=== PATIENT | female | born 1945 | race Asian ===

== ENCOUNTER 2023-06-09 18:55 | Emergency (ER) | payer MEDICARE ==
[~2023-06-09 18:55] MED LIST: Iopamidol 300 61% 100 ML VIAL FS ONE
[2023-06-09] MEDS ORDERED: Ampicillin/Sulbactam 3 GM in Sodium Chloride 0.9% 100 ML IVPB SCH (21:30)
[2023-06-09 21:41] LABS: Bilirubin Neg (Negative); Blood, Urine 10 (Negative); Clarity Clear (Clear); Glucose, Urine (Dipstick) Normal (Negative); Ketone, Urine Negative (Negative); Leukocyte 100 (Negative); Nitrite Negative (Negative); Protein, Urine (Dipstick) 30 mg/dl (Neg-Trace); Specific Gravity, Urine 1.015 (1.005-1.030); Urobilinogen Normal mg/dL (Less than 2)
[2023-06-09] MEDS ORDERED: Fluorescein Opthalmic Strip ONE (21:57)
[2023-06-09] MEDS ORDERED: Proparacaine 0.5% Opth 15 ML BOT ONE (21:58)
[2023-06-09 22:01] LABS: Bacteria/HPF 4+ HPF (None Seen); CAUTI Indications for Culture < 2yrs of age; RBC/HPF 0-3 HPF (0-3); Squamous Epithelial 0-3 HPF (0-3)
[2023-06-09 22:02] LABS: Urine Culture Reflex Yes Yes
[2023-06-09 22:14] LABS: ALT (SGPT) 10 U/L (8-55); AST (SGOT) 25 U/L (5-34); Albumin 4.1 g/dL (3.4-4.8); Alkaline Phosphatase 77 U/L (40-110); Anion Gap 14 mmol/L (10-20); BUN (Urea Nitrogen) 16 mg/dL (9.8-20.1); Bilirubin, Total 0.4 mg/dL (0.2-1.2); Calc. Creatinine Clearance 0 mL/min (70-130); Calcium 9.4 mg/dL (7.8-10.44); Carbon Dioxide 25 mmol/L (23-31); Chloride 103 mmol/L (98-107); Estimated GFR 76; Globulin 3.4 g/dL (2.4-3.5); Glucose 119 mg/dL (83-110); Potassium 3.8 mmol/L (3.5-5.1); Protein, Total 7.5 g/dL (5.8-8.1); Sodium 138 mmol/L (136-145)
[2023-06-09 22:24] LABS: D-Dimer Test 0.68 mg/L FEU (0.19-0.50); PTT 27.1 sec (22.0-33.0); Prothrombin Time 10.3 sec (9.5-12.1)
[2023-06-09 22:42] LABS: #Eosinphils 0.3 10x3/uL (0.0-0.5); #Monocytes 0.6 10x3/uL (0.0-1.1); #Neutrophils 2.6 10x3/uL (1.5-8.4); %Basophils 0.6 % (0.0-2.0); %Eosinophils 4.8 % (0.0-6.0); %Lymphocytes 32.5 % (18.0-47.0); %Monocytes 12.3 % (0.0-10.0); %Neutrophils 49.6 % (40.0-75.0); Hematocrit 36.4 % (34.9-44.5); Hemoglobin 11.2 g/dL (12.0-15.5); Mean Corpuscular HGB CONC 30.8 g/dL (32.0-36.0); Mean Corpuscular Hemoglobin 21.1 pg (27.0-33.0); Mean Corpuscular Volume 68.7 fl (81.6-98.3); Mean Platelet Volume 9.1 fl (7.4-10.4); Platelet Count 248 10x3/uL (150-450); RBC Distribution Width 15.5 % (11.5-14.5); White Blood Cell (WBC) Count 5.2 10x3/uL (3.5-10.5)
[2023-06-09 22:43] LABS: Microcytosis SLIGHT = 6-15 cells (100X) (0-5/hpf); Ovalocytes SLIGHT = 2-5 cells (100X) (0-1/hpf); Platelet Adequacy Comment Appears Adequate
== END 2023-06-10 00:44 | disposition home or self-care (01) ==
LOC: CSHERS 18:55
DX: L03.213 Periorbital cellulitis (principal); I10 Essential (primary) hypertension
CPT/HCPCS: 36415; 70450; 70481; 71045; 80053; 81001; 83605; 85025; 85049; 85300; 85362; 85379; 85384; 85610; 85730; 87040; 87077; 87086; 87186; 96365; J0295; J3490; Q9967